=== PATIENT | male | born 1965 | race African-American/Black ===

== ENCOUNTER 2024-11-30 17:04 | Emergency (ER) | payer OTHER, SELFPAY ==
--- OUTSIDE RECORDS SUMMARY | 2024-11-30 17:12 | XMS_ITS | Clinical Summary ---
Author Organization [facility] Care Team Providers Care [employer] Name Role Phone Unavailable Primary Care Provider Unavailabl e Immunizations Immunization Administration Dates Next Due Covid-19, Mrna, Lnp-s, Pf, 3 0 Mcg/0.3 Ml Dose (FireScope) 04/14/2021,09/20/2020,08/30/2020 Social History Tobacco Use Types Packs/Day Years Used Date Smoking Tobacco: Never Assessed Sex and Gender Information Value Date Recorded Sex Assigned at Not on file Legal Sex Male 2:44 PM CDT Gender Identity Not on file Sexual Orientation Not on file Plan of Treatment Health Maintenance Due Date Last Done Comments Hepatitis C Virus (HCV) Screening 1965 TdaP Immunization 1965 Hepatitis B Immunization (1 of 3 - 19+ 3-dose series) 1984 Colonoscopy 2010 Colorectal Cancer Screening 2010 Cologuard 09/27/2015 Immunochemical Fecal Occult Blood 09/27/2015 Pneumococcal Immunization (5 0+ years) (1 of 1 - PCV) 09/27/2015 Zoster Immunization (1 of 2) 09/27/2015 Influenza Immunization (#1) 2024 SARS-COV-2 Immunization ( - season) 2024 04/14/2021, 09/20/2020, 08/30/2020 Respiratory Syncytial Virus (RSV) Immunization (Adult) (1 - 1-dose 75+ series) 2040 Meningococcal Immunization (ACWY) Aged Out No longer eligible b ased on patient's age to complete this topic Rotavirus Immunization Aged Out No lo nger eligible based on patient's age to complete this topic
--- OUTSIDE RECORDS SUMMARY | 2024-11-30 17:12 | XMS_ITS | Referral Summary ---
Author Organization [facility] Address [address] [place] [address] Care Team Providers Care [employer] Teacher Name Role Phone Lazarus Renee MD Primary Care Provider [phone] Encounters Date Type Department Care Team Description 10/09/2024 9:40 AM CDT Lab [facility] Medical Office Building [address] [place] [id number] PLMD (periodic limb movement disorder); Arthralgia, unspecified joint 10/08/2024 Telephone [facility] [address] [address] Slava Villegas MD Orders Only 10/08/2024 9:45 AM CDT Office Visit [facility] [address] [phone] Natividad Stovall NP ALANA (obstructive sleep apnea) (Primary Dx); PLMD (periodic limb movement disorder); Arthralgia, unspecified joint 09/14/2024 Telephone [facility] [address] [facility] [address] [place] [address] Lazarus Renee MD Recommendation Request from Last 3 Months Allergies No known active allergies Medications tadalafiL (CIALIS) 5 mg tabletIndication s:Erectile dysfunction, unspecified erectile dysfunction type,Encounter for wellness examination in adult Take 1 tablet (5 mg total) by mouth daily 90 tablet 3 4 Active atorvastatin (LIPITOR) 40 mg tabletIndication s:Encounter for wellness examination in adult Take 1 tablet (40 mg total) by mouth daily 90 tablet 3 4 Active sildenafiL (VIAGRA) 100 mg tabletIndication s:Primary pulmonary HTN (HCC),Erectile dysfunction, unspecified erectile dysfunction type Take 1 tablet (100 mg total) by mouth as needed for erectile dysfunction 90 tablet 3 5 Active lisinopriL (PRINIVIL,ZESTRI L) 30 mg tabletIndication s:Primary hypertension Take 1 tablet (30 mg total) by mouth daily 90 tablet 3 5 Active hydroCHLOROthiaz walt (HYDRODIURIL) 25 mg tabletIndication s:Primary hypertension Take 1 tablet (25 mg total) by mouth daily 90 tablet 3 5 Active Active Problems Problem Noted Date Diagnosed Date PLMD (periodic limb movement disorder) 5 Assessment & Plan (10/08/2024 10:15 AM CDT): Asymptomatic, I have ordered labs Strain of left ankle 08/30/2024 Assessment & Plan (08/30/2024 7:43 PM NETWORKING TECHNOLOGY INSTRUCTOR): This is acute. He injured it playing basketball. He is wearing a brace and it has improved. He has no history of gout. If persists, we will refer to orthopedics for x-ray and consider physical therapy. For now, he will do alphabet [id number] exercises and some lateral stretching. ALANA (obstructive sleep apnea) 08/18/2024 Assessment & Plan (10/08/2024 10:16 AM CDT): Due to the slightly elevated AHI and the snoring with the mask in place, I have increased the pressure to 10 cm water pressure. I have asked the patient to call into the office if it needs to be readjusted. I ordered a hose DME adapt Assessment & Plan (08/30/2024 7:42 PM NETWORKING TECHNOLOGY INSTRUCTOR): He has started CPAP. He states good compliance. Going to change from nasal pillows to a facemask. He thinks that will give him better fit. His blood pressure has improved. He denies daytime drowsiness. Encounter for wellness examination in adult 05/02 Assessment & Plan (05/20/2024 9:02 PM NETWORKING TECHNOLOGY INSTRUCTOR): We discussed diet and exercise and the benefits of healthy lifestyle choices. We discussed the benefit of losing a few pounds. We reviewed accident prevention, including seat belt use and smoke detectors. We discussed stress management and relaxation. We reviewed immunization and cancer screening recommendations. Check comprehensive metabolic panel for kidney and liver functions and fasting glucose screening. Check fasting lipid panel for cardiovascular risk stratification. Check hepatitis-C screening. Check PSA for prostate cancer screening. Give Tdap booster and Shingrix #1. Primary pulmonary HTN 05/20/2024 Assessment & Plan (08/30/2024 7:42 PM NETWORKING TECHNOLOGY INSTRUCTOR): We will add the Viagra for erectile dysfunction. This should also help with pulmonary hypertension. He has no chest pain or shortness of breath. Assessment & Plan (05/20/2024 9:03 PM NETWORKING TECHNOLOGY INSTRUCTOR): Resume lisinopril/HCTZ. Continue to monitor. Consider echocardiogram. Erectile dysfunction 05/20/2024 Assessment & Plan (08/30/2024 7:41 PM NETWORKING TECHNOLOGY INSTRUCTOR): Continue daily Cialis. Add Viagra 100 mg daily p.r.n.. We discussed risks and benefits and potential side effects. We discussed dosing regimen. He will use good Rx discount card. Assessment & Plan (05/20/2024 9:00 PM NETWORKING TECHNOLOGY INSTRUCTOR): Continue Cialis 5 mg daily. We discussed risks and benefits and potential side effects. Mixed hyperlipidemia 2012 Overview (05/20/2024): Assessment & Plan (08/30/2024 7:42 PM NETWORKING TECHNOLOGY INSTRUCTOR): Continue low-fat diet. Avoid fried foods and fast foods. Assessment & Plan (05/20/2024 9:02 PM NETWORKING TECHNOLOGY INSTRUCTOR): Continue low-fat diet. Avoid fried foods and fast foods. Check fasting lipid panel. Assessment & Plan (08/19/2019 2:44 PM NETWORKING TECHNOLOGY INSTRUCTOR): On atorvastatin Assessment & Plan (07/15/2019 3:11 PM NETWORKING TECHNOLOGY INSTRUCTOR): Continue the atorvatatin Hypertension 2012 Overview (10/05/2016): Hypertension Assessment & Plan (08/30/2024 7:42 PM NETWORKING TECHNOLOGY INSTRUCTOR): His blood pressure is excellent today but still running high at home. We will change to Zestoretic to individual components of the we can increase the lisinopril dose. Rx lisinopril 30 mg daily 90 day Rx with 3 refills and HCTZ 25 mg daily 90 day Rx with 3 refills. He can get generic on both. He will continue low-salt diet. Continue exercise as tolerated. Assessment & Plan (05/20/2024 9:01 PM NETWORKING TECHNOLOGY INSTRUCTOR): Continue low-salt diet. Resume lisinopril/HCTZ 20/25 once daily. Check kidney function on CMP. Check fasting lipid panel for cardiovascular risk stratification. Increase exercise as tolerated. There has been a bit of getting weight down a few lb. Check UA for protein and blood. Assessment & Plan (08/19/2019 2:44 PM NETWORKING TECHNOLOGY INSTRUCTOR): Continue present medication Assessment & Plan (07/15/2019 3:12 PM NETWORKING TECHNOLOGY INSTRUCTOR): To start back on blood pressure medication Assessment & Plan (08/15/2017 8:25 AM NETWORKING TECHNOLOGY INSTRUCTOR): Continue the present medication Assessment & Plan (07/23/2017 4:10 PM NETWORKING TECHNOLOGY INSTRUCTOR): To start on hctz 25 mg in addition to the zestril Resolved Problems Problem Noted Date Diagnosed Date Resolved Date Immunization due 05/20/2024 08/18/2024 Assessment & Plan (05/20/2024 9:01 PM NETWORKING TECHNOLOGY INSTRUCTOR): Give Tdap booster and 1st shingles vaccine.. Encounter for hepatitis C sc reening test for low risk patient 05/20/2024 08/18/2024 Assessment & Plan (05/20/2024 8:58 PM NETWORKING TECHNOLOGY INSTRUCTOR): Check hepatitis-C antibody. We discussed rationale for screening. Need for hepatitis B screening test 05/20/2024 08/18/2024 Assessment & Plan (05/20/2024 9:02 PM NETWORKING TECHNOLOGY INSTRUCTOR): Check hepatitis-B surface antigen. We discussed rationale for screening. Prostate cancer screening 05/20/2024 Assessment & Plan (05/20/2024 9:03 PM NETWORKING TECHNOLOGY INSTRUCTOR): Check PSA. We discussed controversies regarding screening, early detection, and early treatment of prostate cancer. He wishes to continue screening. Screening for lipid disorders 05/20/2024 08/18/2024 Assessment & Plan (05/20/2024 9:03 PM NETWORKING TECHNOLOGY INSTRUCTOR): Check fasting lipid panel. Snoring 05/20/2024 08/18/2024 Assessment & Plan (06/04/2024 9:13 AM NETWORKING TECHNOLOGY INSTRUCTOR): The patient presents with snoring and witnessed apneas. I have recommended proceeding with a nocturnal polysomnogram with a split night protocol if necessary and no MSLT. He will follow up here in 4 months. Assessment & Plan (05/20/2024 9:03 PM NETWORKING TECHNOLOGY INSTRUCTOR): He has sleep study scheduled 06/05/2024. His 's snores and has CPAP. She recognizes his pattern similar to hers. Arthritis of left wrist 05/13/202005/02 Overview (05/13/2020): Added automatically from request for surgery [id number] Left wrist pain 11/12/2019 05/20/2024 BMI 26.0-26.9,adult 08/19/2019 05/20/20 24 Assessment & Plan (08/19/2019 2:45 PM NETWORKING TECHNOLOGY INSTRUCTOR): BMI Follow-up includes: education provided. Screen for colon cancer 07/16/201905/02 Overview (07/16/2019): Added automatically from request for surgery [id number] Encounter for preventive health examination 07/15/2019 05/20/2024 Overview (07/15/2019): Added automatically from request for surgery [id number] Colon cancer screening 07/15/201905/20 Overview (07/16/2019): Added automatically from request for surgery [id number] Immunizations Immunization Administration Dates Next Due Influenza, Unspecified 05/05/2024(Deferr ed: Patient Refused),03/31/2023(Deferred: Patient Refused),11/12/2019(Deferred: Patient Refused) Pneumococcal Conjugate Pcv20 05/05/2024(Deferred : Patient Refused) Tdap 05/05/2024 ZOSTER Recombinant 05/05/2024 Social History Tobacco Use Types Packs/Day Years Used Date Smoking Tobacco: Never Passive Smoke Exposure: Yes Smokeless Tobacco: Never Comments:cigars occasionally Alcohol Use Standard Drinks/Week Comments Yes 18 (1 standard drink = 0.6 oz pu re alcohol) AUDIT-C Answer Date Recorded Q1: How often do you have a drink containing alc ohol? 2-3 times a week 05/20/2024 Q2: How many drinks containi ng alcohol do you have on a typical day when you are drinking? 1 or 2 05/20/2024 Q3: How often do you have si x or more drinks on one occasion? Never 05/20/2024 PHQ-2 Answer Date Recorded PHQ-2 Total Score 0 05/05/2024 Sex and Gender Information Value Date Recorded Sex Assigned at Not on file Legal Sex Male 10:49 AM NETWORKING TECHNOLOGY INSTRUCTOR Gender Identity Not on file Sexual Orientation Straight 11/12/2019 9: 49 AM CDT Last Filed Vital Signs Vital Sign Reading Time Taken Comments Blood Pressure 120/72 10/08/2024 9:49 AM CDT Pulse 82 10/08/2024 9:49 AM CDT Temperature 36.1 C (96.9 F) 10/08/2024 9:49 AM CDT Respiratory Rate 16 10/08/2024 9:49 AM CDT Oxygen Saturation 97% 10/08/2024 9:49 AM CDT Inhaled Oxygen Concentration - - Weight 95.3 kg (210 lb) 10/08/2024 9:49 AM CDT Height 188 cm (6' 2) 10/08/2024 9:49 AM CDT Body Mass Index 26.96 10/08/2024 9:49 AM CDT Plan of Treatment Not on file Medical Devices Explanted Type Area Coordinator Skill Training Program Device Identifier Shelf Expiration Date Model / Serial / Lot [employer] [id number] Lisa .045in 9in Threaded [place] - [id number] Explanted:Qty: 1 on 05/31/2020 by Oswaldo Benito MD at [facility] Left: Wrist [employer] [id number] S / / Procedures Procedure Name Priority Date/Time Associated Diagnosis Comments EGFR Routine 10/09/2024 9:46 AM CDT PLMD (periodic limb movement disorder) Arthralgia, unspecified joint BUN Routine 10/09/2024 9:46 AM CDT PLMD (periodic limb movement disorder) Arthralgia, unspecified joint CREATININE Routine 10/09/2024 9:46 AM CDT PLMD (periodic limb movement disorder) Arthralgia, unspecified joint FERRITIN Routine 10/09/2024 9:46 AM CDT PLMD (periodic limb movement disorder) Arthralgia, unspecified joint IRON PROFILE W/ IBC Routine 10/09/2024 9 :46 AM CDT PLMD (periodic limb movement disorder) Arthralgia, unspecified joint HEPATITIS C ANTIBODY Routine 05/05/2024 12:30 PM NETWORKING TECHNOLOGY INSTRUCTOR Encounter for hepatitis C screening test for low risk patient Encounter for wellness examination in adult PSA SCREEN Routine 05/05/2024 12:30 PM NETWORKING TECHNOLOGY INSTRUCTOR Encounter for wellness examination in adult COLONOSCOPY 08/10/2019 10:52 AM NETWORKING TECHNOLOGY INSTRUCTOR from Last 3 Months or Most Recently Relevant to Health Maintenance Results * eGFR (10/09/2024 9:46 AM CDT) eGFR 87 >=60 mL/min/1. 73 m2 Comment: Interpretive Data Reference Interval Normal >/= 90 mL/min/1.73m2 Mildly decreased* 60 - 89 mL/min/1.73m2 Mildly to moderately decreased 45 - 59 mL/min/1.73m2 Moderately to severely decreased 30 - 44 mL/min/1.73m2 Severely decreased 15 - 29 mL/min/1.73m2 Kidney Failure < 15 mL/min/1.73m2 *Relative to young adult level Estimated glomerular filtration rate is determined by the 2020 CKD-EPI equation recommended by the National Kidney Foundation (A Unifying Approach to GFR Estimation: Recommendations of the NKF-ASK Task Force on Reassessing the Inclusion of Race in Diagnosing Kidney Disease, JASN 2020). The CKD-EPI equation should not be used for patients with unstable renal function and has not been validated in children and those over 70. Current interpretive data was last reviewed 2021. Testing performed by: [facility], [address] [place] [address]., [address] Blood 10/09/2024 9:46 AM CDT 10/09/2024 10:47 AM CDT us Natividad Stovall [employer]CH[employer] LAB BLOOD ORDERABLES Final Result ERIKA [address] [facility] Department [place] [address] * Iron profile w/ IBC (10/09/2024 9:46 AM CDT) Iron 82 50 - 150 mcg/dL Comment:Testing performed by : [address] [address] TIBC 315 250 - 400 mcg/dL ERIKA Comment:Testing performed by : [address] [address] Transferrin saturation 26 20 - 50 % ERIKA ARVIZU Comment:Testing performed by : [address] [address] Blood 10/09/2024 9:46 AM CDT 10/09/2024 10:47 AM CDT Natividad Stovall [employer] MECH[employer]IC LAB BLOOD ORDERABLES Final Result LINDSEY[address] [place] [address] * BUN (10/09/2024 9:46 AM CDT) BUN 12 6 - 25 mg/dL Comment:Testing performed by : [address] [address] Blood 10/09/2024 9:46 AM CDT 10/09/2024 10:47 AM CDT Natividad Stovall [employer] MECH[employer]IC LAB BLOOD ORDERABLES Final Result Performing Organization Address City/[facility]/ZIP Co de Phone Number LINDSEY[address] [place] [address] * (ABNORMAL) Ferritin (10/09/2024 9:46 AM CDT) Ferritin 436(H) 30 - 400 ng/mL Comment:Testing performed by : [address] [address] Blood 10/09/2024 9:46 AM CDT 10/09/2024 10:47 AM CDT Natividad Stovall [employer] MECH[employer]IC LAB BLOOD ORDERABLES Final Result LINDSEY[address] [place] [address] * Creatinine (10/09/2024 9:46 AM CDT) Pathologist [facility] [place] Creatinine 1.00 0.80 - 1.30 mg/dL Comment:Testing performed by : [facility], [address] [place] [address], [place]., [address] Blood 10/09/2024 9:46 AM CDT 10/09/2024 10:47 AM CDT Natividad Stovall NP LAB BLOOD ORDERABLES Final Result ERIKA [address] [facility] Department [place] [address] * PSA screen (05/05/2024 12:30 PM NETWORKING TECHNOLOGY INSTRUCTOR) [facility] PSA-Total 1.48 <=3.90 ng/mL Comment: Interpretive Data AGE SEX REFERENCE INTERVAL 0 minutes-150 years Female None 0 minutes-49 years Male None 50-59 years Male 0-3.90 60-69 years Male 0-5.40 70-79 years Male 0-6.20 80-150 years Male 0-6.20 The Indu PSA Total assay procedure was used. Results from different manufacturers or methods may not be comparable. Serial testing should be performed using the same method. Current interpretive data last revised 21. Blood 05/05/2024 12:3 0 PM NETWORKING TECHNOLOGY INSTRUCTOR 05/05/2024 4:25 PM NETWORKING TECHNOLOGY INSTRUCTOR us Lazarus Renee MD LAB BLOOD ORDERABLES Final Res ult ERIKA [facility] [address] Department [place] [address] * Hepatitis C antibody Blood (05/05/2024 12:30 PM NETWORKING TECHNOLOGY INSTRUCTOR) Pathologist [facility] [place] Hep C Ab Nonreactive Nonreactive Comment: Interpretive Data Nonreactive: Antibodies to HCV not detected. Does NOT exclude the possibility of recent exposure to HCV. Equivocal: Equivocal for HCV antibodies. Supplemental molecular testing will be automatically performed to determine infection status in accordance with current CDC screening recommendations. Reactive: Positive for HCV antibodies. This may represent current or past HCV infection. Supplemental molecular testing will be automatically performed to determine current infection status in accordance with current CDC screening recommendations. Interpretive data was last revised on 2019. Blood 05/05/2024 12:3 0 PM NETWORKING TECHNOLOGY INSTRUCTOR 05/05/2024 4:25 PM NETWORKING TECHNOLOGY INSTRUCTOR Lazarus Renee MD LAB MICROBIOLOGY - GENERAL ORD ERABLES Final Result ERIKA [facility] [address] Department [place] [address] * COLONOSCOPY (08/10/2019 10:52 AM NETWORKING TECHNOLOGY INSTRUCTOR) Anatomical Region Laterality Modality Other Narrative Procedure Note Miki Cid MD - 08/10/2019 10:52 AM CST ENDOSCOPY LAB Patient Name: Jeromy Green Procedure Date: 08/10/2019 10:52 AM Admit Type: Outpatient Room: [facility] Date of : 1965 Instrument Name: [id number] Gender: Male Note Status: Finalized Procedure: Colonoscopy Indications: Screening for colorectal malignant neoplasm Comorbidities No comorbidities Providers: Miki Cid M.D. Referring MD: Giovanni Corado M.D. Medicines: Propofol per Anesthesia Complications: No immediate complications. Estimated Blood Loss: Estimated blood loss: none. Procedure: Pre-Anesthesia Assessment: - Prior to the procedure, a History and Physical was performed, and patient medications and allergies were reviewed. The patient's tolerance of previousanesthesia was also reviewed. The risks and benefits of theprocedure and the sedation options and risks were discussed withthe patient. All questions were answered, and informedconsent was obtained. Prior Anticoagulants: The patient hastaken no previous anticoagulant or antiplatelet agents. ASA Grade Assessment: II - A patient with mild systemic disease. After reviewing the risks and benefits, the patient was deemed in satisfactory condition to undergo the procedure. - The risks and benefits of the procedure and thesedation options and risks were discussed with the patient. All questions were answered and informed consent wasobtained. The benefits, risks and alternatives of the procedureand sedation were discussed and informed consent wasobtained. All questions were answered. Please refer to the signed informed consent document in the medical record. Thescope was passed under direct vision. The Colonoscope was introduced through the anus and advanced to the the terminal ileum. The quality of the bowel preparationwas evaluated using the BBPS (Orwell Bowel PreparationScale) with scores of: Right Colon = 2 (minor amount ofresidual staining, small fragments of stool and/or opaqueliquid, but mucosa seen well), Transverse Colon = 3 (entiremucosa seen well with no residual staining, small fragments of stool or opaque liquid) and Left Colon = 3 (entiremucosa seen well with no residual staining, small fragments of stool or opaque liquid). The total BBPS score equals 8. The quality of the bowel preparation was good. Thebowel preparation used was Miralax. Bowel prep wasadministered using a split dose. Findings: The perianal and digital rectal examinations were normal. Two sessile polyps were found in the descending colon. The polypswere 3 to 5 mm in size. These polyps were removed with a cold snare.Resection and retrieval were complete. The terminal ileum appeared normal. The retroflexed view of the distal rectum and anal verge was normaland showed no anal or rectal abnormalities. Impression: - Two 3 to 5 mm polyps in the descending colon, removed with a cold snare. Resected and retrieved. - The examined portion of the ileum was normal. - The distal rectum and anal verge are normal on retroflexion view. Recommendation: - [facility] The signs and symptoms of potential delayedcomplications were discussed with the patient. Return to normal activities tomorrow. Written discharge instructionswere provided to the patient. - Resume previous diet. - Continue present medications. - Await pathology results. - Repeat colonoscopy in 5 years for surveillance. - Return to primary care physician as previouslyscheduled. Attending Participation: I personally performed the entire procedure. Electronically signed by Miki Cid MD Miki Cid M.D. 08/10/2019 11:26:11 AM Number of Addenda: 0 Note Initiated On: 08/10/2019 10:52 AM Miki Cid MD ENDOSCOPY PROCEDURES Final Resul t from Last 3 Months or Most Recently Relevant to Health Maintenance Insurance [employer] [facility] [employer] [facility] [id number] [facility] [id number] [employer] Address: [facility] [address] [place] [address] Advance Directives For more information, please contact: [phone] * Full Code (Latest Code Status on File) Date Activated Date Inactivated Comments 08/10/2019 10:17 AM 08/10/2019 4:01 PM Care Teams Grade School Teacher Relationship Specialty Start Date End Date Lazarus Renee MD [address] [place] [address] PCP - General Family Medicine 05/05/24
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
--- OUTSIDE RECORDS SUMMARY | 2024-11-30 17:12 | XMS_ITS | Continuity of Care Document ---
Author Organization [facility] Address [address] [facility] [address] [place] [address] Phone Care Team Providers Care Jewel Bearing Grinder Name Role Phone Farheen Reed Unavailable Unavailable Procedures Procedure Date Therapeutic Exercise Therapeutic Activities Manual Therapy Hot or Cold Pack Therapeutic Exercise Progress Note Therapeutic Activities Hot or Cold Pack Manual Therapy Therapeutic Activities Therapeutic Exercise Hot or Cold Pack Manual Therapy Therapeutic Activities Manual Therapy Therapeutic Exercise Hot or Cold Pack Therapeutic Activities Therapeutic Exercise Manual Therapy Hot or Cold Pack Therapeutic Activities Manual Therapy Hot or Cold Pack Therapeutic Exercise OT Evaluation Low Complexity Manual Therapy Therapeutic Exercise Therapeutic Activities Advance Directives Directive Yes / No Effective Date File Name No Information Encounters Encounter Description Practice Location Reason(s) For Visit Diagnoses Date Provider Providers Copied on Encounter [facility], [address] [place], [place] [address]uite [address] [place] [address], [id number], tel:[phone] [place] No Information Francis Farheen. . [facility] [place] [address] [place] [address], [id number], tel:[phone] [place] No Information Francis Farheen. . [facility] [place] [address] [place] [address], [id number], tel:[phone] [place] No Information Pleasants Farheen. . [facility] [place] [address], [id number], tel:[phone] [place] No Information Pleasants Farheen. . [facility] [place] [address], [id number], tel:[phone] [place] No Information Francis Farheen. . [facility] [place] [address], [id number], tel:[phone] [place] No Information Francis Farheen. . [facility] [place] [address], [id number], tel:[phone] [place] No Information Francis Farheen. . Family History Family Member Type Diagnosis Age At Onset No Information Payers Payer name Insurance type Covered democrat ID Authoriza tion(s) No Information Social History Type Description Quantity Date Captured Comments Sex Male Smoking Status No Information Chief Complaint And Reason For Visit No Information Reason For Referral Reason For Referral No Information Plan Of Treatment Date Type Action Status Goal Tobacco Cessation Counseling completed Goal Tobacco cessation counseling completed History Of Present Illness Encounter Date Complaint History Of Prese nt Illness No Information Functional Status Date Functional Assessmen t No Information Instructions Date Instruction Additional Infor mation Giving encouragement to exercise Related to Overweight Giving encouragement to exercise Related to Overweight Assessments Type Assessment Date No Information Patient Care Teams Name Effective Dates (start - stop) Status Members No Information
[2024-11-30 17:17] VITALS: BP 151/91; PULSE 94; RESP 18; TEMP 36.8; O2SAT 100
[2024-11-30 17:42] LABS: EDSTREPNEGPOS1 Negative (Negative)
[2024-11-30 17:58] LABS: EDCOVIDSCREEN Negative (Negative); EDINFLUASCREEN Negative (Negative); EDINFLUBSCREEN Negative (Negative)
--- NOTE | 2024-11-30 18:10 | ED.GENADULT ---
HPI - General Adult General Chief complaint: Upper Respiratory Infection Stated complaint: Cough History of Present Illness HPI narrative: Jeromy Green Is a 59-year-old male who presents today with complaints of having URI symptoms that started 2 days ago. He describes having all over body aches, feeling hot and cold, sore throat, cough, and congestion. He denies SOB/ Chest pain or vomiting. Related Data Home Medications ?Medication ?Instructions ?Recorded ?Confirmed ?Last Taken ?Type atorvastatin 40 mg tablet mg 11/30/24 Unknown History lisinopril 20 tablet 11/30/24 Unknown History mg-hydrochlorothiazide 25 mg tablet tadalafil 5 mg tablet mg 11/30/24 Unknown History Allergies Allergy/AdvReac Type Severity Reaction Status Date / Time No Known Allergies Allergy Verified 11/30/24 17:20 Review of Systems Review of Systems: All systems reviewed & are unremarkable except as noted in HPI and below Exam Narrative: GENERAL: Well-appearing, well-nourished, and in no acute distress. HEAD: Normocephalic, atraumatic. EYES: PERRLA and EOMI. ENT: Nares clear, no rhinorrhea or epistaxis. Mucous membranes moist. Oropharynx without tonsillar hypertrophy exudate or other lesions. Bilateral TMs pearly hatfield non bulging NECK: Supple. No adenopathy or masses. No carotid bruits or JVD CHEST: Clear to auscultation. No respiratory distress. No wheezes rales or rhonchi HEART: Regular rate and rhythm. No murmur heard. Normal peripheral pulses. ABDOMEN: Soft, nontender, nondistended, normal active bowel sounds. EXTREMITIES: Normal range of motion. No edema. SKIN: Warm, dry, no rash. NEURO: No focal deficits. Alert and oriented x3. PSYCH: Normal mood and affect. Course Course Level of Care: Express Care Visit Vital Signs Vital signs: Vital Signs Temperature 36.8 C 11/30/24 17:17 Pulse Rate 94 11/30/24 17:17 Respiratory Rate 18 11/30/24 17:17 Blood Pressure 151/91 H 11/30/24 17:17 Pulse Oximetry 100 11/30/24 17:17 Oxygen Delivery Room Air 11/30/24 17:17 Temperature 36.8 C 11/30/24 17:17 Pulse Rate 94 11/30/24 17:17 Respiratory Rate 18 11/30/24 17:17 Blood Pressure 151/91 H 11/30/24 17:17 Pulse Oximetry 100 11/30/24 17:17 Oxygen Delivery Room Air 11/30/24 17:17 Medical Decision Making MDM Narrative Medical decision making narrative: 59-year-old male with symptoms consistent with viral upper respiratory infection. Lung sounds are clear throughout no respiratory distress noted sating 100% on room air. Check viral swab which is negative and strep which is negative will send a strep culture to be sure. Treating here with Tylenol Motrin. Encouraged patient to continue Mucinex twice daily and Zyrtec with Tylenol Motrin for body aches fevers pushing hydration and getting plenty of rest. Return precautions discussed. Medical Records Medical records reviewed: Yes I reviewed the external patient's medical records. Vital Signs Vital Signs: Vital Signs Temperature 36.8 C 11/30/24 17:17 Pulse Rate 94 11/30/24 17:17 Respiratory Rate 18 11/30/24 17:17 Blood Pressure 151/91 H 11/30/24 17:17 Pulse Oximetry 100 11/30/24 17:17 Oxygen Delivery Room Air 11/30/24 17:17 Temperature 36.8 C 11/30/24 17:17 Pulse Rate 94 11/30/24 17:17 Respiratory Rate 18 11/30/24 17:17 Blood Pressure 151/91 H 11/30/24 17:17 Pulse Oximetry 100 11/30/24 17:17 Oxygen Delivery Room Air 11/30/24 17:17 Vitals reviewe by me Lab Data Lab results reviewed: Yes I reviewed the patient's lab results. Labs: Lab Results 11/30/24 11/30/24 Range/Units 17:40 17:56 POC Influenza A Ag Negative (Negative) POC Influenza B Ag Negative (Negative) POC SARS CoV-2 Ag Negative (Negative) POC Grp A Strep Screen Negative (Negative) Discharge Plan Discharge Clinical Impression: Upper respiratory infection Qualifiers: URI type: unspecified viral URI Qualified Code(s): J06.9 - Acute upper respiratory infection, unspecified Patient Disposition: Home Condition: Stable Instructions: Antibiotic Form Additional Instructions: Continue to take the Mucinex twice daily for 10 days Start taking the Zyrtec daily to help dry up your secretions Continue Tylenol / Motrin for body aches fever Push hydration/ drinking more liquids then your baseline Get plenty of rest You should feels some improvement in the next 3 days or so - if you should develop worsening symptoms such as chest pain/ difficulty breathing/ vomiting/ lethargy then proceed to the ER. Patient Language: Turkish Prescriptions: New guaifenesin [Mucinex] 1,200 mg tablet extended release 12hr 1,200 mg PO BID Qty: 20 0RF Zyrtec 10 mg capsule 10 mg PO DAILY PRN (Reason: allergy symptoms) Qty: 20 0RF No Action atorvastatin 40 mg tablet lisinopril-hydrochlorothiazide 20-25 mg tablet tadalafil 5 mg tablet Follow-up/Referrals: Thelma,Lazarus N[place] [Other] - 1 Week Stand Alone Forms: Work/School Release IP Time of Disposition: 18:13
[2024-11-30] MEDS: IBUPROFEN 600 MG TABLET PO (18:16)
[2024-11-30] MEDS: ACETAMINOPHEN 500 MG TABLET 1000 MG PO (18:16)
== END 2024-11-30 18:18 | disposition home or self-care (01) ==
PROVIDERS: Emergency Provider Nurse Practitioner Family
DX: J06.9 Acute upper respiratory infection, unspecified (principal); Z20.822 Contact with and (suspected) exposure to COVID-19
CPT/HCPCS: 87081; 87426; 87804; 87880; 99203; A9270; G0463